=== PATIENT | male | born 1955 | race Asian ===

== ENCOUNTER 2022-07-29 07:16 | Day surgery (SDC) | payer OTHER, MEDICARE ==
[~2022-07-29 07:16] MED LIST: Lactated Ringers 1,000 ML IV SCH; ceFAZolin 1 GM in Premix Bag 1 BAG IV SCH
[2022-07-29] MEDS ORDERED: Propofol 200 MG/20 ML SDV ONE (07:53)
[2022-07-29] MEDS ORDERED: Ondansetron 4 MG/2 ML SDV ONE (07:53)
[2022-07-29] MEDS ORDERED: Ketorolac 30 MG/ML SDV ONE (07:53)
[2022-07-29] MEDS ORDERED: Lidocaine 2% 11 ML Jelly Filled Syringe ONE (07:53)
[2022-07-29] MEDS ORDERED: Lidocaine 2% 5 ML SDV ONE (07:53)
[2022-07-29] MEDS ORDERED: fentaNYL 100 MCG/2 ML SDV ONE (07:53)
[2022-07-29] MEDS ORDERED: Bupivacaine 0.5% 30 ML SDV ONE (08:30)
[2022-07-29] MEDS ORDERED: Ondansetron 4 MG/2 ML SDV IVPUSH PRN (08:35)
[2022-07-29] MEDS ORDERED: Morphine 2 MG/ML SYRINGE IVPUSH PRN (08:35)
[2022-07-29] MEDS ORDERED: HYDROmorphone 1 MG/ML Syringe IVPUSH PRN (08:35)
[2022-07-29] MEDS ORDERED: fentaNYL 50 MCG/ML SDV IVPUSH PRN (08:35)
[2022-07-29] MEDS ORDERED: Metoclopramide 10 MG/2 ML SDV IVPUSH PRN (08:35)
[2022-07-29] MEDS ORDERED: Albuterol 0.083% 2.5 MG/3 ML Neb Soln NEB PRN (08:35)
[2022-07-29] MEDS ORDERED: Naloxone 0.4 MG/ML SDV IVPUSH PRN (08:35)
== END 2022-07-29 10:25 | disposition home or self-care (01) ==
LOC: MW.SDS 07:16
PROVIDERS: ATTEND Surgery
DX: Z45.2 Encounter for adjustment and management of vascular access device (principal); J01.90 Acute sinusitis, unspecified; N40.0 Benign prostatic hyperplasia without lower urinary tract symptoms; E11.9 Type 2 diabetes mellitus without complications; E78.5 Hyperlipidemia, unspecified; N52.9 Male erectile dysfunction, unspecified; E78.1 Pure hyperglyceridemia; I10 Essential (primary) hypertension; G47.00 Insomnia, unspecified; E78.00 Pure hypercholesterolemia, unspecified; Z79.899 Other long term (current) drug therapy; Z79.84 Long term (current) use of oral hypoglycemic drugs; Z87.891 Personal history of nicotine dependence; Z95.828 Presence of other vascular implants and grafts
CPT/HCPCS: 82947; A9270-GY; J1885; J2405; J2704; J3010; J3490; J7120